=== PATIENT | female | born 1950 | race Caucasian/White ===

== ENCOUNTER → 2020-04-06 | Outpatient (REF) | payer MEDICARE | LOC: M LAB REF 13:12 | PROVIDERS: ATTEND Radiology Diagnostic Radiology | DX: N63.12 Unspecified lump in the right breast, upper inner quadrant (principal) ==

== ENCOUNTER → 2023-10-16 | Outpatient (CLI) | payer MEDICARE | LOC: M WUC 12:36 | PROVIDERS: ATTEND Internal Medicine | DX: I49.1 Atrial premature depolarization (principal) ==

== ENCOUNTER → 2024-02-26 | Outpatient (REF) | payer MEDICARE | LOC: M SFHCDERM 17:45 | PROVIDERS: ATTEND Nurse Practitioner Family | DX: L56.8 Other specified acute skin changes due to ultraviolet radiation (principal) ==